=== PATIENT | female | born 1995 | race Caucasian/White ===

== ENCOUNTER 2017-05-17 06:25 | Day surgery (SDC) | payer MEDICAID, OTHER ==
[2017-05-17] MEDS ORDERED: Bupivacaine 0.5% 30 ML SDV ONE (06:38)
[2017-05-17] MEDS ORDERED: Sodium Chloride 0.9% 50 ML SDV ONE (06:38)
--- NOTE | 2017-05-17 07:10 | PCM.PREANE ---
Preanesthetic Assessment - Anesthesia/Transfusion/Family Hx Anesthesia History: Prior Anesthesia Without Reaction Family History of Anesthesia Reaction: No Transfusion History: No Prior Transfusion(s) - Review of Systems General: No Symptoms Pulmonary: No Symptoms Cardiovascular: No Symptoms Gastrointestinal: No symptoms Neurological: No Symptoms Other: Reports: Easy Bruising - Physical Assessment NPO Status Date: 05/16/17 NPO Status Time: 00:00 Pulse: 69 O2 Sat by Pulse Oximetry: 100 Respiratory Rate: 20 Blood Pressure: 126/85 Temperature: 36.8 C Height: 1.6 m Weight: 43 kg ASA Class: 1 Mental Status: Alert & Oriented x3 Airway Class: Mallampati = 2 Dentition: Reports: Normal Dentition Thyro-Mental Finger Breadths: 3 Mouth Opening Finger Breadths: 2 ROM/Head Extension: Full Lungs: Clear to auscultation, Normal respiratory effort Cardiovascular: Regular Rate, Regular Rhythm, No Murmurs - Lab Values: Laboratory Last Values WBC 5.68 K/mm3 (3.98-10.04) 05/16/17 14:41 RBC 5.78 M/mm3 (3.98-5.22) H 05/16/17 14:41 Hgb 15.2 gm/L (11.2-15.7) 05/16/17 14:41 Hct 47.3 % (34.1-44.9) H 05/16/17 14:41 MCV 81.8 fl (79.4-94.8) 05/16/17 14:41 MCH 26.3 pg (25.6-32.2) 05/16/17 14:41 MCHC 32.1 g/dl (32.2-35.5) L 05/16/17 14:41 RDW Std Deviation 43.3 fL (36.4-46.3) 05/16/17 14:41 Plt Count 255 K/mm3 (182-369) 05/16/17 14:41 MPV 12.1 fl (9.4-12.3) 05/16/17 14:41 Neut % (Auto) 55.2 % (34.0-71.1) 05/16/17 14:41 Lymph % (Auto) 35.9 % (19.3-51.7) 05/16/17 14:41 [place] % (Auto) 8.1 % (4.7-12.5) 05/16/17 14:41 Eos % (Auto) 0.4 (0.7-5.8) L 05/16/17 14:41 Baso % (Auto) 0.2 % (0.1-1.2) 05/16/17 14:41 Neut # (Auto) 3.14 K/mm3 (1.56-6.13) 05/16/17 14:41 Lymph # (Auto) 2.04 K/mm3 (1.18-3.74) 05/16/17 14:41 [place] # (Auto) 0.46 K/mm3 (0.24-0.36) H 05/16/17 14:41 Eos # (Auto) 0.02 K/mm3 (0.04-0.36) L 05/16/17 14:41 Baso # (Auto) 0.01 K/mm3 (0.01-0.08) 05/16/17 14:41 Sodium 138 mEq/L (136-145) 05/16/17 14:41 Potassium 4.5 mEq/L (3.5-5.1) 05/16/17 14:41 Chloride 104 mEq/L (98-107) 05/16/17 14:41 Carbon Dioxide 25 mEq/L (21-32) 05/16/17 14:41 Anion Gap 13.5 (5-15) 05/16/17 14:41 BUN 13 mg/dL (7-18) 05/16/17 14:41 Creatinine 0.8 mg/dL (0.55-1.02) 05/16/17 14:41 Est Cr Clr Drug Dosing TNP 05/16/17 14:41 Estimated GFR (MDRD) > 60 mL/min (>60) 05/16/17 14:41 BUN/Creatinine Ratio 16.3 (14-18) 05/16/17 14:41 Glucose 94 mg/dL (74-106) 05/16/17 14:41 Calcium 9.3 mg/dL (8.5-10.1) 05/16/17 14:41 Total Bilirubin 0.3 mg/dL (0.2-1.0) 05/16/17 14:41 AST 23 U/L (15-37) 05/16/17 14:41 ALT 25 U/L (14-59) 05/16/17 14:41 Alkaline Phosphatase 66 U/L (46-116) 05/16/17 14:41 Total Protein 8.2 g/dl (6.4-8.2) 05/16/17 14:41 Albumin 4.1 g/dl (3.4-5.0) 05/16/17 14:41 Globulin 4.1 gm/dL 05/16/17 14:41 Albumin/Globulin Ratio 1.0 (1-2) 05/16/17 14:41 Urine Color Yellow (Yellow) 05/16/17 14:41 Urine Appearance Clear (Clear) 05/16/17 14:41 Urine pH 7.0 (5.0-8.0) 05/16/17 14:41 Ur Specific [place] 1.015 (1.005-1.030) 05/16/17 14:41 Urine Protein Negative (Negative) 05/16/17 14:41 Urine Glucose (UA) Negative (Negative) 05/16/17 14:41 Urine Ketones Negative (Negative) 05/16/17 14:41 Urine Occult Blood 3+ (Negative) H 05/16/17 14:41 Urine Nitrite Negative (Negative) 05/16/17 14:41 Urine Bilirubin Negative (Negative) 05/16/17 14:41 Urine Urobilinogen 0.2 (0.2-1.0) 05/16/17 14:41 Ur Leukocyte Esterase Negative (Negative) 05/16/17 14:41 Urine HCG, Qual Negative (NEGATIVE) 05/16/17 14:41 Blood Type O POSITIVE 05/16/17 14:41 Gel Antibody Screen Negative 05/16/17 14:41 - Anesthesia Plan Pre-Op Medication Ordered: None - Acknowledgements Anesthesia Type Planned: General Anesthesia Pt an Appropriate Candidate for the Planned Anesthesia: Yes Alternatives and Risks of Anesthesia Discussed w Pt/Guardian: Yes Pt/Guardian Understands and Agrees with Anesthesia Plan: Yes PreAnesthesia Questionnaire Gastrointestinal History: Reports: GERD - SUBSTANCE USE Smoking Status *Q: Never Smoker Tobacco Use Within Last Twelve Months: No Second Hand Smoke Exposure: No Days Per Week of Alcohol Use: 0 Number of Drinks Per Day: 0 Total Drinks Per Week: 0 Recreational Drug Use History: No - CURRENT (IN HOUSE) MEDS Current Meds: Current Medications Discontinued Medications Bupivacaine HCl (Marcaine 0.5%) Confirm Administered Dose 30 ml .ROUTE .STK-MED ONE Stop: 05/17/17 06:39 Sodium Chloride (Normal Saline) Confirm Administered Dose 50 ml .ROUTE .STK-MED ONE Stop: 05/17/17 06:39
[2017-05-17] MEDS ORDERED: Propofol 200 MG/20 ML SDV ONE (07:22)
[2017-05-17] MEDS ORDERED: fentaNYL 250 MCG/5 ML SDV ONE (07:22)
[2017-05-17] MEDS ORDERED: Ondansetron 4 MG/2 ML SDV ONE (07:22)
[2017-05-17] MEDS ORDERED: Rocuronium 50 MG/5 ML Vial ONE (07:22)
[2017-05-17] MEDS ORDERED: Midazolam 1 MG/ML 2 ML SDV ONE (07:22)
[2017-05-17] MEDS ORDERED: Dexamethasone 4 MG/ML SDV ONE (07:23)
[2017-05-17] MEDS ORDERED: diphenhydrAMINE 50 MG/ML SDV ONE (07:23)
[2017-05-17] MEDS ORDERED: Lidocaine 1% 4 ML ONE (07:23)
[2017-05-17] MEDS ORDERED: ceFAZolin 1 GM Vial ONE (07:29)
[2017-05-17] MEDS ORDERED: Lidocaine 1%/Sod Bicarbonate in NS 8.4% 1 ML Syringe IV ONE (07:42)
[2017-05-17] MEDS ORDERED: Sodium Chloride 0.9% 10 ML Syringe FLUSH SCH (07:45)
[2017-05-17] MEDS ORDERED: Lactated Ringers 1,000 ML IV SCH (07:45)
[2017-05-17] MEDS ORDERED: Lactated Ringers 1,000 ML ONE (08:06)
[2017-05-17] MEDS ORDERED: Ketorolac 30 MG/ML SDV ONE (08:32)
[2017-05-17] MEDS ORDERED: Acetaminophen/oxyCODONE 325-5 MG Tab PO PRN (08:44)
[2017-05-17] MEDS ORDERED: Ondansetron 4 MG/2 ML SDV IVPUSH PRN (08:44)
--- NOTE | 2017-05-17 08:54 | PCM.POSTAN ---
POST ANESTHESIA ASSESSMENT - MENTAL STATUS Mental Status: alert, oriented - VITAL SIGNS Pulse Rate: 70 SaO2: 100 Resp Rate: 19 Blood Pressure: 111/64 Temperature: 37.3 C - RESPIRATORY Respiratory Status: respiratory rate WNL, airway patent, O2 saturation stable, supplemental oxygen - CARDIOVASCULAR CV Status: pulse rate WNL, blood pressure stable - GASTROINTESTINAL GI Status: no symptoms - PAIN Pain Score: 0 - POST OP HYDRATION Hydration Status: adequate & stable - OBSERVATIONS Free Text/Narrative:: no anesthesia complications noted
--- NOTE | 2017-05-17 08:55 | PCM.OPNOTE ---
- General Post-Op/Procedure Note Date of Surgery/Procedure: 05/17/17 Operative Procedure(s): Laparoscopy, right ovarian cystectomy Findings: 7 cm right ovarian simple cyst. Uterus fallopian tubes and left ovary along with the cul-de-sacs anteriorly and posteriorly are within normal limits. No evidence of liver abnormality. Pre Op Diagnosis: Right ovarian cyst Post-Op Diagnosis: Same Anesthesia Technique: General ET tube Other Anesthesia Type: Marcaine 0.5% locally Primary Surgeon: Emery Johnson Secondary Surgeon: Sera Nguyen Anesthesia Provider: Raza Metclaf Pathology: Right ovarian cyst wall Fluid Replacement, Intraop: 1,300 Output, Urine Amount: 100 EBL in mLs: 20 Drain/Tube Comments:: Indwelling bladder catheter in place only during the surgeryremoved at the end of the case. Complications: None Condition: Good Free Text/Narrative:: Surgery duration: 42 minutes Complications: None Procedure: The patient is taken to the operating room and placed in a supine position on the operating table. She received 2 g of Ancef preoperatively for infection prophylaxis and had sequential compression stockings in place for DVT prophylaxis. She was administered general endotracheal anesthesia. After adequate anesthesia patient was prepped and draped in usual fashion. Her legs were placed in the dorsal lithotomy position and a Steel catheter was placed in the bladder. Uterine manipulator was also placed without problems. The infraumbilical incision site and suprapubic site, along with eventually a right lateral port site, were then developed using Marcaine locally-3-4 mL. 5 mm port sites were established in the right lateral and infraumbilical sites. The suprapubic site eventually was 10 mm port. Pneumoperitoneum was established and patient was found to have a 7 cm cyst right ovary which appeared simple and benign in nature. It totally occupied the pelvis and obliterated the view of the uterus until moved out of the way. The findings otherwise were normal as described above. Decision was made to proceed with dissection of the cyst out of its shell. An incision was made in the ovarian epithelium in the antimesenteric portion of the cyst. This was extended over the entire cyst. Dissection the cyst from the surrounding shell was then undertaken using blunt dissection. During this process the cyst did rupture resulting in benign serous fluid. The cyst wall was then completely dissected out using blunt dissection. Minimal bleeding was encountered. The base of the cyst bed was found to hemostatically intact. The pelvis was irrigated and blood was removed. Interceed was then placed in the bed of the ovary cyst and it was allowed to collapse upon itself. This an attempt to decrease the likelihood of adhesion formation. At this time hemostasis was confirmed. The lower ports were removed as was the upper sleeve. The suprapubic port site was closed with a single interrupted [id number] suture of 0 Vicryl in the fascial layer and 2 subcuticular skin sutures of 3-0 Monocryl. The right port site and the infraumbilical port site were closed with single interrupted suture of 3-0 Vicryl. All incisions were then further approximated with Dermabond skin glue. Patient was returned to supine position after the Steel catheter and the uterine manipulator were removed. It should be noted patients having her period at the time of operation. He was awakened from general endotracheal anesthesia and was discharged from the operating room in good condition
[2017-05-17] MEDS ORDERED: fentaNYL 100 MCG/2 ML SDV IVPUSH PRN (09:45)
[2017-05-17] MEDS ORDERED: HYDROmorphone 0.5 MG/0.5 ML Syringe IVPUSH PRN (09:45)
[2017-05-17 10:19] VITALS: BP 107/59
== END 2017-05-17 12:10 | disposition home or self-care (01) ==
LOC: JD.SDS 06:25
PROVIDERS: ATTEND Obstetrics & Gynecology
PROC: 0UB04ZZ Excision of Right Ovary, Percutaneous Endoscopic Approach (ICD-10-PCS; principal; 2017-05-17)
DX: N83.201 Unspecified ovarian cyst, right side (principal)
CPT/HCPCS: 36415; 58662; 80053; 81003; 81025; 85025; 86850; 86900; 86901; A9270; C1765; J0690; J1100; J1200; J1885; J2250; J2405; J3010; J7120; 00840; J2704

== ENCOUNTER 2018-04-15 16:21 | Emergency (ER) | payer MEDICAID ==
[2018-04-15] MEDS ORDERED: Ondansetron 4 MG/2 ML SDV IVPUSH PRN (16:37)
[2018-04-15] MEDS ORDERED: Atropine/Diphenoxylate 0.025-2.5 MG Tab PO PRN (16:39)
[2018-04-15] MEDS ORDERED: Dextrose 5%-Lactated Ringers 1,000 ML IV SCH (16:45)
[2018-04-15 18:00] VITALS: BP 133/85
--- NOTE | 2018-04-15 20:17 | PCM.CONS ---
H&P History of Present Illness - General Date of Service: 04/15/18 Admit Problem/Dx: 1. Nausea with emesis 2. Diarrhea 3. Temperature elevation 4. Pelvic pain Source of Information: Patient History Limitations: Reports: No Limitations - History of Present Illness Initial Comments - Free Text/Narative: Ashish is a 22-year-old nulligravida white female who was seen initially today the [facility] in [place] to check to see whether she had a bladder infection. She had some suprapubic discomfort. She does report nausea times last 2 days with onset of diarrhea in the last 24 hours. She's had 2-3 bouts of diarrhea today. She has food aversions and has had a hard time keeping fluids down. She thinks she might be mildly dehydrated. She is sent to our clinic for full evaluation of this. Urinalysis done at [facility] was negative. Gonorrhea and chlamydia assays were done and are pending. On evaluation in clinic the patient was noted to have temperature elevation of 100.2. She appeared at least mildly dehydrated somewhat pasty and oral mucous membranes. She is unable to keep fluids down decision was made with to hydrate her in the emergency room give her nausea medication and antidiarrheal medication if needed. Onset of Symptoms: Reports: Other (2 days ago) Symptom Onset Date: 04/13/18 Duration of Symptoms: Reports: Day(s): Location: Reports: Abdomen, Back, Pelvis Quality: Reports: Ache, Other (Cramping) Improves with: Reports: Rest Worsens with: Reports: Movement Abdomen Pain Score (Numeric/FACES): 5 - Related Data Allergies/Adverse Reactions: Allergies Allergy/AdvReac Type Severity Reaction Status Date / Time No Known Allergies Allergy Verified 04/15/18 18:00 Home Medications: Home Meds Atropine/Diphenoxylate [Diphenoxylate-Atropine] 2 tab PO BID PRN tablet [Rx] Ondansetron [Zofran] 4 mg PO Q4H PRN #4 vial 04/15/18 [Rx] Past Medical History Gastrointestinal History: Reports: GERD Genitourinary History: Reports: Other (See Below) (Patient has an IUD in place) Other OB/BYN History: right ovarian cyst. with rlq pain Psychiatric History: Reports: Anxiety, Depression - Past Surgical History Female Surgical History: Reports: Other (See Below) Other Female Surgeries/Procedures: ovarian cyst Social & Family History - Family History Family Medical History: Noncontributory - Tobacco Use Smoking Status *Q: Never Smoker - Caffeine Use Caffeine Use: Reports: None - Recreational Drug Use Recreational Drug Use: No H&P Review of Systems - Review of Systems: Review Of Systems: See Below General: Reports: Fever HEENT: Reports: No Symptoms Pulmonary: Reports: No Symptoms Cardiovascular: Reports: No Symptoms Gastrointestinal: Reports: Abdominal Pain, Diarrhea, Nausea Genitourinary: Reports: Discharge Musculoskeletal: Reports: No Symptoms Skin: Reports: No Symptoms Psychiatric: Reports: No Symptoms Neurological: Reports: No Symptoms Hematologic/Lymphatic: Reports: No Symptoms Immunologic: Reports: No Symptoms Exam - Exam Exam: See Below - Vital Signs Vital Signs: Last Vital Signs Temp 37.7 C 04/15/18 17:00 Pulse 94 04/15/18 17:00 Resp 16 04/15/18 17:00 BP 133/85 04/15/18 17:00 Pulse Ox 100 04/15/18 17:00 - Exam General: Alert, Oriented HEENT: Other (Mucous membranes are pasty and consistent with mild dehydration) Neck: Supple, Trachea Midline Lungs: Clear to Auscultation, Normal Respiratory Effort Cardiovascular: Regular Rate, Regular Rhythm GI/Abdominal Exam: Soft, No Organomegaly, No Distention, No Mass, Other ( Hyperactive bowel sounds) (Female) Exam: Normal External Exam, Normal Speculum Exam (IUD strings noted at cervical os), Normal Bimanual Exam Back Exam: Normal Inspection, Full Range of Motion Extremities: Normal Inspection Skin: Warm, Dry Neuro Extensive - Mental Status: Alert, Oriented x3 Neuro Extensive - Motor, Sensory, Reflexes: Normal Gait Psychiatric: Alert, Normal Affect - Patient Data Lab Results Last 24 hrs: Laboratory Results - last 24 hr 04/15/18 04/15/18 Range/Units 17:10 17:10 WBC 4.69 (3.98-10.04) K/mm3 RBC 5.67 H (3.98-5.22) M/mm3 Hgb 15.3 (11.2-15.7) gm/L Hct 46.8 H (34.1-44.9) % MCV 82.5 (79.4-94.8) fl MCH 27.0 (25.6-32.2) pg MCHC 32.7 (32.2-35.5) g/dl RDW Std Deviation 42.9 (36.4-46.3) fL Plt Count 204 (182-369) K/mm3 MPV 11.6 (9.4-12.3) fl Neutrophils % (Manual) 78 H (40-60) % Band Neutrophils % 1 (0-10) % Lymphocytes % (Manual) 21 (20-40) % Atypical Lymphs % 0 % Monocytes % (Manual) 0 L (2-10) % Eosinophils % (Manual) 0 L (0.7-5.8) % Basophils % (Manual) 0 L (0.1-1.2) Platelet Estimate Adequate Plt Morphology Comment Normal RBC Morph Comment Normal Sodium 137 (136-145) mEq/L Potassium 3.7 (3.5-5.1) mEq/L Chloride 102 (98-107) mEq/L Carbon Dioxide 25 (21-32) mEq/L Anion Gap 13.7 (5-15) BUN 12 (7-18) mg/dL Creatinine 0.8 (0.55-1.02) mg/dL Est Cr Clr Drug Dosing TNP Estimated GFR (MDRD) > 60 (>60) mL/min BUN/Creatinine Ratio 15.0 (14-18) Glucose 100 (74-106) mg/dL Calcium 9.1 (8.5-10.1) mg/dL Total Bilirubin 0.4 (0.2-1.0) mg/dL AST 27 (15-37) U/L ALT 29 (14-59) U/L Alkaline Phosphatase 81 (46-116) U/L Total Protein 8.0 (6.4-8.2) g/dl Albumin 4.1 (3.4-5.0) g/dl Globulin 3.9 gm/dL Albumin/Globulin Ratio 1.1 (1-2) Result Diagrams: 04/15/18 17:10 04/15/18 17:10 Consult PN Assessment/Plan Procedures: Procedures ASSAY THYROID STIM HORMONE (12/30/17) BLOOD TYPING SEROLOGIC ABO (05/17/17) BLOOD TYPING SEROLOGIC RH(D) (05/17/17) CHORIONIC GONADOTROPIN ASSAY (01/07/18) COMPLETE CBC AUTOMATED (12/30/17) COMPLETE CBC W/AUTO DIFF WBC (05/17/17) COMPREHEN METABOLIC PANEL (12/30/17) LAPAROSCOPY EXCISE LESIONS (05/17/17) RBC ANTIBODY SCREEN (05/17/17) ROUTINE VENIPUNCTURE (01/07/18) SMEAR WET MOUNT SALINE/INK (03/12/18) TRICHOMONAS ASSAY W/OPTIC (03/12/18) URINALYSIS AUTO W/O SCOPE (05/17/17) URINALYSIS AUTO W/SCOPE (12/30/17) URINE TEST (05/17/17) Problem List Initiated/Reviewed/Updated: Yes My Orders Last 24 Hours: My Active Orders 04/15/18 16:35 Transvaginal Non OB [US] Routine 04/15/18 16:37 Ondansetron [Zofran] 4 mg IVPUSH Q4H PRN 04/15/18 16:39 Atropine/Diphenoxylate [Lomotil 0.025-2.5 MG] 2 tab PO BID PRN 04/15/18 16:45 Dextrose 5%-Lactated Ringers 1,000 ml IV ASDIRECTED Plan: Emergency department Hospital course:. Patient was evaluated in the ED and was found to have normal vital signs. Laboratory testing was performed and IV hydration was accomplished. Initially normal saline bolus followed by maintenance dose of D5 LR. She was administered Zofran IV. She did not have any emesis during the course of her ED visit but did report some nausea which improved with Zofran. She did not have any diarrhea during the course of her ED evaluation. Patient is doing much better and felt she could manage adequate oral hydration at home. At this point she was discharged to home. Discharge instructions given and discharge planning was completed. Assessment: 1. Probable viral gastroenteritis with resultant nausea and diarrhea. This is accompanied by mild dehydration and temperature elevation secondary to dehydration. 2. Normal white blood count and no evidence of a bacterial infection. 3. Small amount of free fluid in posterior cul-de-sac questionable inflammatory nature. 4. GC and chlamydia assays are pending. 5. Urinalysis unremarkable at [facility] Plan: 1. Adequate oral hydration. Patient feels she'll be able to do this 2. Zofran 4 mg by mouth every 4 hours when necessary for nausea. Quantity for, refill 2 3. Imodium antidiarrhea medication when necessary for diarrhea 4. Patient call clinic in the a.m. to inform us as to her condition. She will call sooner if problem persists or worsens.
--- NOTE | 2018-04-16 10:05 | US ---
Pelvic ultrasound: Multiple real-time images were obtained transvaginally. Comparison: No prior study. Uterus is anteverted. Echogenic structure seen within the endometrial cavity compatible with IUD. IUD obscures good measurement of the endometrial stripe. No myometrial abnormality is seen. Follicles noted within both ovaries. Slight increased free fluid is seen within the pelvis. Measurements: Uterus: Length 6.0 cm, AP height 3.3 cm, transverse width 4.8 cm Right ovary: 3.8 x 1.5 x 2.2 cm Left ovary: 3.7 x 2.2 x 1.9 cm Impression: 1. Slight increased free fluid within the pelvis. Difficult to exclude nonvisualized cyst or follicle rupture. 2. IUD is present within the endometrial cavity. 3. Pelvic ultrasound is otherwise unremarkable. Diagnostic code #2 I agree with preliminary report from [facility], finalized at 04/15/18, 8:38 PM Central Time
== END 2018-04-15 21:08 | disposition home or self-care (01) ==
LOC: JD.ED 16:21 → JD.IVTHER 16:21 → EDSTATUS 17:22 → JD.ED 21:08
DX: R11.2 Nausea with vomiting, unspecified (principal); R19.7 Diarrhea, unspecified; R10.2 Pelvic and perineal pain; R50.9 Fever, unspecified; K21.9 Gastro-esophageal reflux disease without esophagitis; F41.9 Anxiety disorder, unspecified; F32.9 Major depressive disorder, single episode, unspecified; Z79.899 Other long term (current) drug therapy
CPT/HCPCS: 36415; 76830; 80053; 85007; 85027; 96361; 96374; 99284; J2405; J7040; J7042

== ENCOUNTER 2018-04-17 11:45 | Emergency (ER) | payer MEDICAID ==
[2018-04-17 11:53] VITALS: BP 145/91
[2018-04-17] MEDS ORDERED: Ondansetron 4 MG/2 ML SDV IVPUSH ONE (12:14)
[2018-04-17] MEDS ORDERED: Sodium Chloride 0.9% 1,000 ML IV ONE (12:14)
[2018-04-17] MEDS ORDERED: Sodium Chloride 0.9% 10 ML Syringe FLUSH PRN (12:15)
[2018-04-17] MEDS ORDERED: Dicyclomine 20 MG/2 ML SDV IM ONE (12:15)
--- NOTE | 2018-04-17 12:32 | EDM.PDOC ---
ED HPI GENERAL MEDICAL PROBLEM - General Chief Complaint: Abdominal Pain Stated Complaint: LOW ABD PAIN Time Seen by Provider: 04/17/18 12:02 Source of Information: Reports: Patient, Old Records (recent ER visit, recent clinic records) History Limitations: Reports: No Limitations - History of Present Illness INITIAL COMMENTS - FREE TEXT/NARRATIVE: 22 year old female presents for evaluation and treatment of lower abdomen/ pelvic pain, nausea and diarrhea. Symptoms started last weekend. Symptoms started with lower abdominal pain then nausea and diarrhea. She reports she has and 4 watery, loose stools today. No blood in her stools. Reports she has had fevers, highest 102. Describes the lower abdominal pain and constant, crampy pain. No vomiting or urinary symptoms. Patient denies any recent travel. Patient denies any recent antibiotics. Patient denies any ill contacts. Patient reports one day prior to her symptoms stating she ate raw fish and drank alcohol at a restaurant. Patient was seen by [facility] on 04-15-18. She had a UA and gonorrhea and chlamydia testing done. She does not know these results. Patient was sent to Dr. Johnson's office from [facility] for further evaluation. She was then sent to the ER for IV hydration, labs and a tansvaginal ultrasound. Testing was unremarkable. She was prescribed zofran and sent home. She is not getting any relief with the zofran. 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 RECORDAK OPERATOR: Reports: Other (see below) Other Treatments RECORDAK OPERATOR: iv fluids on Saturday Lower Pelvic Pain Score (Numeric/FACES): 5 - Related Data Allergies Allergy/AdvReac Type Severity Reaction Status Date / Time No Known Allergies Allergy Verified 04/15/18 18:00 Home Meds: Home Meds Ciprofloxacin [Cipro XR] 500 mg PO BID #10 tab.er 04/17/18 [Rx] Dicyclomine [Bentyl] 20 mg PO TID PRN #15 tab 04/17/18 [Rx] Ondansetron [Zofran ODT] 4 mg PO Q6H PRN #20 tab.dis 04/17/18 [Rx] Past Medical History Gastrointestinal History: Reports: GERD Genitourinary History: Reports: Other (See Below) Other OB/BYN History: right ovarian cyst. with rlq pain Psychiatric History: Reports: Anxiety, Depression - Past Surgical History Female Surgical History: Reports: Other (See Below) Other Female Surgeries/Procedures: ovarian cyst Social & Family History - Family History Family Medical History: Noncontributory - Tobacco Use Smoking Status *Q: Never Smoker - Caffeine Use Caffeine Use: Reports: Coffee, Tea - Recreational Drug Use Recreational Drug Use: No ED ROS GENERAL - Review of Systems Review Of Systems: See Below Constitutional: Reports: Fever (highest of 102 at home), Decreased Appetite GI/Abdominal: Reports: Abdominal Pain, Diarrhea, Nausea. Denies: Bloody Stool, Vomiting : Reports: No Symptoms. Denies: Dysuria, Hematuria ED EXAM, GI/ABD - Physical Exam Exam: See Below Exam Limited By: No Limitations General Appearance: Alert, WD/WN, No Apparent Distress, Thin Respiratory/Chest: No Respiratory Distress, Lungs Clear, Normal Breath Sounds Cardiovascular: Normal Peripheral Pulses, Regular Rate, Rhythm, No Murmur GI/Abdominal Exam: Normal Bowel Sounds, Soft, No Distention, Tender (suprapubic) Neurological: Alert, Oriented, Normal Cognition Psychiatric: Normal Affect, Normal Mood Skin Exam: Warm, Dry, Normal Color Course - Vital Signs Last Recorded V/S: Last Vital Signs Temp 37.2 C 04/17/18 11:52 Pulse 80 04/17/18 11:52 Resp 20 04/17/18 11:52 BP 145/91 H 04/17/18 11:52 Pulse Ox 100 04/17/18 11:52 - Orders/Labs/Meds Orders: Active Orders 24 hr Category Date Time Status Peripheral IV Care [RC] . DIRECTED Care 04/17/18 12:15 Active C DIFFICILE BY PCR W/NAP1 [MOLEC] Stat Lab 04/17/18 12:14 Ordered CULTURE STOOL + SHIGATOX [RM] Stat Lab 04/17/18 14:20 Received HCG QUALITATIVE,URINE [URCHEM] Stat Lab 04/17/18 14:20 Ordered UA W/MICROSCOPIC [URIN] Stat Lab 04/17/18 14:20 Ordered WBC, STOOL [OP] Stat Lab 04/17/18 12:14 Ordered Peripheral IV Insertion Adult [OM.PC] Routine Oth 04/17/18 12:15 Ordered Labs: Laboratory Tests 04/17/18 04/17/18 04/17/18 Range/Units 12:05 12:05 12:05 WBC 4.26 (3.98-10.04) K/mm3 RBC 5.45 H (3.98-5.22) M/mm3 Hgb 14.9 (11.2-15.7) gm/L Hct 45.8 H (34.1-44.9) % MCV 84.0 (79.4-94.8) fl MCH 27.3 (25.6-32.2) pg MCHC 32.5 (32.2-35.5) g/dl RDW Std Deviation 43.0 (36.4-46.3) fL Plt Count 184 (182-369) K/mm3 MPV 11.5 (9.4-12.3) fl Neutrophils % (Manual) 57 (40-60) % Band Neutrophils % 1 (0-10) % Lymphocytes % (Manual) 35 (20-40) % Atypical Lymphs % 0 % Monocytes % (Manual) 6 (2-10) % Eosinophils % (Manual) 1 (0.7-5.8) % Basophils % (Manual) 0 L (0.1-1.2) Platelet Estimate Adequate RBC Morph Comment Normal Sodium 139 (136-145) mEq/L Potassium 3.7 (3.5-5.1) mEq/L Chloride 104 (98-107) mEq/L Carbon Dioxide 25 (21-32) mEq/L Anion Gap 13.7 (5-15) BUN 17 (7-18) mg/dL Creatinine 0.8 (0.55-1.02) mg/dL Est Cr Clr Drug Dosing 71.27 mL/min Estimated GFR (MDRD) > 60 (>60) mL/min BUN/Creatinine Ratio 21.3 H (14-18) Glucose 100 (74-106) mg/dL Calcium 9.0 (8.5-10.1) mg/dL Magnesium 1.7 L (1.8-2.4) mg/dl Total Bilirubin 0.2 (0.2-1.0) mg/dL AST 24 (15-37) U/L ALT 26 (14-59) U/L Alkaline Phosphatase 83 (46-116) U/L C-Reactive Protein 1.9 H* (<1.0) mg/dL Total Protein 7.7 (6.4-8.2) g/dl Albumin 3.8 (3.4-5.0) g/dl Globulin 3.9 gm/dL Albumin/Globulin Ratio 1.0 (1-2) Urine Color (Yellow) Urine Appearance (Clear) Urine pH (5.0-8.0) Ur Specific [place] (1.005-1.030) Urine Protein (Negative) Urine Glucose (UA) (Negative) Urine Ketones (Negative) Urine Occult Blood (Negative) Urine Nitrite (Negative) Urine Bilirubin (Negative) Urine Urobilinogen (0.2-1.0) Ur Leukocyte Esterase (Negative) Urine RBC (0-5) /hpf Urine WBC (0-5) /hpf Ur Epithelial Cells (0-5) /hpf Urine Bacteria (FEW) /hpf Urine Mucus (FEW) /hpf Urine HCG, Qual (NEGATIVE) 04/17/18 04/17/18 Range/Units 14:20 14:20 WBC (3.98-10.04) K/mm3 RBC (3.98-5.22) M/mm3 Hgb (11.2-15.7) gm/L Hct (34.1-44.9) % MCV (79.4-94.8) fl MCH (25.6-32.2) pg MCHC (32.2-35.5) g/dl RDW Std Deviation (36.4-46.3) fL Plt Count (182-369) K/mm3 MPV (9.4-12.3) fl Neutrophils % (Manual) (40-60) % Band Neutrophils % (0-10) % Lymphocytes % (Manual) (20-40) % Atypical Lymphs % % Monocytes % (Manual) (2-10) % Eosinophils % (Manual) (0.7-5.8) % Basophils % (Manual) (0.1-1.2) Platelet Estimate RBC Morph Comment Sodium (136-145) mEq/L Potassium (3.5-5.1) mEq/L Chloride (98-107) mEq/L Carbon Dioxide (21-32) mEq/L Anion Gap (5-15) BUN (7-18) mg/dL Creatinine (0.55-1.02) mg/dL Est Cr Clr Drug Dosing mL/min Estimated GFR (MDRD) (>60) mL/min BUN/Creatinine Ratio (14-18) Glucose (74-106) mg/dL Calcium (8.5-10.1) mg/dL Magnesium (1.8-2.4) mg/dl Total Bilirubin (0.2-1.0) mg/dL AST (15-37) U/L ALT (14-59) U/L Alkaline Phosphatase (46-116) U/L C-Reactive Protein (<1.0) mg/dL Total Protein (6.4-8.2) g/dl Albumin (3.4-5.0) g/dl Globulin gm/dL Albumin/Globulin Ratio (1-2) Urine Color Light yellow (Yellow) Urine Appearance Clear (Clear) Urine pH 7.0 (5.0-8.0) Ur Specific [place] 1.015 (1.005-1.030) Urine Protein Negative (Negative) Urine Glucose (UA) Negative (Negative) Urine Ketones Negative (Negative) Urine Occult Blood Negative (Negative) Urine Nitrite Negative (Negative) Urine Bilirubin Negative (Negative) Urine Urobilinogen 0.2 (0.2-1.0) Ur Leukocyte Esterase Negative (Negative) Urine RBC 0-5 (0-5) /hpf Urine WBC 5-10 H (0-5) /hpf Ur Epithelial Cells 5-10 H (0-5) /hpf Urine Bacteria Few (FEW) /hpf Urine Mucus Few (FEW) /hpf Urine HCG, Qual Negative (NEGATIVE) Meds: Medications Discontinued Medications Generic Name Dose Route Start Last Admin Trade Name Freq PRN Reason Stop Dose Admin Dicyclomine HCl 20 mg 04/17/18 12:15 04/17/18 12:39 Bentyl IM 04/17/18 12:16 20 mg ONETIME ONE Administration Sodium Chloride 1,000 mls @ 999 mls/hr 04/17/18 12:14 04/17/18 12:37 Normal Saline IV 04/17/18 13:14 999 mls/hr ONETIME ONE Administration Ondansetron HCl 4 mg 04/17/18 12:14 04/17/18 12:39 Zofran IVPUSH 04/17/18 12:15 4 mg ONETIME ONE Administration Sodium Chloride 10 ml 04/17/18 12:15 04/17/18 12:38 Saline Flush FLUSH 10 ml ASDIRECTED PRN Administration Keep Vein Open - Radiology Interpretation Free Text/Narrative:: Abdomen: Supine view of the abdomen was obtained. Comparison: No prior study. Bowel gas pattern appears within normal limits. IUD is present within the pelvis. Bony structures are unremarkable. No abnormal calcifications or soft tissue abnormality is seen. Impression: 1. Unremarkable supine abdominal x-ray. - Re-Assessments/Exams Free Text/Narrative Re-Assessment/Exam: 04/17/18 14:56 Patient has been here over 3 hours at this time and has not had any diarrhea like stools. No indication for any imaging at this time. CRP is slightly elevated she likely has some infectious process going on. Discussed with Dr. Perez. We will obtain stool studies. Will send home with these. Recommended Cipro twice a day for 5 days. Follow up in the clinic next week. Discharge instructions as documented. Departure - Departure Time of Disposition: 15:00 Disposition: Home, Self-Care 01 Condition: Fair Clinical Impression: Gastroenteritis - Discharge Information Prescriptions: Ciprofloxacin [Cipro XR] 500 mg PO BID #10 tab.er Dicyclomine [Bentyl] 20 mg PO TID PRN #15 tab PRN Reason: Pain Ondansetron [Zofran ODT] 4 mg PO Q6H PRN #20 tab.dis PRN Reason: Nausea Instructions: Viral Gastroenteritis, Adult, [id number] Referrals: Emery Johnson MD [Primary Care Provider] - Sera Gibson PA-C [Physician Sprinkler Tender] - Forms: ED Department Discharge Additional Instructions: Bentyl 1 tab PO tid prn abdominal pain and cramping. Zofran 1 tab sublingual every 6-8 hours prn nausea. Recommend starting a probiotic, these are available OTC. Take the ciprofloxacin bid x 5 days. Take with food. Return the stool studies once they are done. Clear fluids and a bland diet. [place] diet recommendations include bread, rice, applesauce, toast, soup broth, etc. Follow-up in clinic next week for a recheck of your symptoms. Recommend SCOTTIE Conner in your PCPs abscence. Call [phone] to schedule with her. Please return to the ER should your symptoms change or worsen. - My Orders Last 24 Hours: My Active Orders 04/17/18 12:14 C DIFFICILE BY PCR W/NAP1 [MOLEC] Stat WBC, STOOL [OP] Stat 04/17/18 12:15 Peripheral IV Care [RC] . DIRECTED Peripheral IV Insertion Adult [OM.PC] Routine 04/17/18 14:20 CULTURE STOOL + SHIGATOX [RM] Stat HCG QUALITATIVE,URINE [URCHEM] Stat UA W/MICROSCOPIC [URIN] Stat - Assessment/Plan Last 24 Hours: My Active Orders 04/17/18 12:14 C DIFFICILE BY PCR W/NAP1 [MOLEC] Stat WBC, STOOL [OP] Stat 04/17/18 12:15 Peripheral IV Care [RC] . DIRECTED Peripheral IV Insertion Adult [OM.PC] Routine 04/17/18 14:20 CULTURE STOOL + SHIGATOX [RM] Stat HCG QUALITATIVE,URINE [URCHEM] Stat UA W/MICROSCOPIC [URIN] Stat
--- NOTE | 2018-04-17 13:37 | CR ---
Abdomen: Supine view of the abdomen was obtained. Comparison: No prior study. Bowel gas pattern appears within normal limits. IUD is present within the pelvis. Bony structures are unremarkable. No abnormal calcifications or soft tissue abnormality is seen. Impression: 1. Unremarkable supine abdominal x-ray. Diagnostic code #2
== END 2018-04-17 15:14 | disposition home or self-care (01) ==
LOC: JD.ED 11:45
DX: K52.9 Noninfective gastroenteritis and colitis, unspecified (principal)
CPT/HCPCS: 36415; 74018; 80053; 81001; 81025; 83735; 85007; 85027; 86140; 96361; 96372; 96374; 99284; J0500; J2405; J7040; J7050; 87046

== ENCOUNTER → 2018-07-08 | Day surgery (SDC) | payer BC, MEDICAID ==
[~2018-07-08] MED LIST: Acetaminophen/oxyCODONE 325-5 MG Tab PO PRN; Bupivacaine 0.5% 30 ML SDV ONE; Dexamethasone 4 MG/ML SDV ONE; HYDROmorphone 0.5 MG/0.5 ML Syringe IVPUSH PRN; HYDROmorphone 0.5 MG/0.5 ML Syringe ONE; Haloperidol Lactate 5 MG/ML SDV IVPUSH ONE; Ketorolac 30 MG/ML SDV ONE; Lactated Ringers 1,000 ML IV SCH; Lactated Ringers 1,000 ML ONE; Lidocaine 1% 4 ML ONE; Lidocaine 1%/Sod Bicarbonate in NS 8.4% 1 ML Syringe IDERM PRN; Meperidine 50 MG/ML Vial IVPUSH PRN; Midazolam 1 MG/ML 2 ML SDV IVPUSH PRN; Midazolam 1 MG/ML 2 ML SDV ONE; Neostigmine Methylsulfate 1 MG/ML 5 ML Syringe ONE; Ondansetron 4 MG/2 ML SDV IVPUSH PRN; Ondansetron 4 MG/2 ML SDV ONE; Propofol 200 MG/20 ML SDV ONE; Rocuronium 50 MG/5 ML Vial ONE; Sodium Chloride 0.9% 10 ML Syringe FLUSH PRN; diphenhydrAMINE 50 MG/ML SDV ONE; fentaNYL 100 MCG/2 ML SDV IVPUSH PRN; fentaNYL 100 MCG/2 ML SDV ONE
--- NOTE | 2018-07-08 07:10 | PCM.PREANE ---
Preanesthetic Assessment - Anesthesia/Transfusion/Family Hx Anesthesia History: Prior Anesthesia Without Reaction Family History of Anesthesia Reaction: No Transfusion History: No Prior Transfusion(s) Intubation History: Unknown - Review of Systems General: No Symptoms, Fatigue Pulmonary: No Symptoms Cardiovascular: No Symptoms Gastrointestinal: Abdominal Pain (Rated 4/10 currentlly), Nausea Neurological: No Symptoms Other: Reports: None - Physical Assessment NPO Status Date: 07/07/18 NPO Status Time: 20:00 Pulse: 85 O2 Sat by Pulse Oximetry: 100 Respiratory Rate: 16 Blood Pressure: 119/60 Temperature: 37.2 C Height: 1.6 m Weight: 44.906 kg ASA Class: 1 Mental Status: Alert & Oriented x3 Airway Class: Mallampati = 2 Dentition: Reports: Normal Dentition, Caries Thyro-Mental Finger Breadths: 3 Mouth Opening Finger Breadths: 2 ROM/Head Extension: Full Lungs: Clear to Auscultation, Normal Respiratory Effort Cardiovascular: Regular Rate, Regular Rhythm, No Murmurs - Lab Values: Laboratory Last Values WBC 4.58 K/mm3 (3.98-10.04) 07/08/18 06:55 RBC 5.38 M/mm3 (3.98-5.22) H 07/08/18 06:55 Hgb 14.5 gm/L (11.2-15.7) 07/08/18 06:55 Hct 45.5 % (34.1-44.9) H 07/08/18 06:55 MCV 84.6 fl (79.4-94.8) 07/08/18 06:55 MCH 27.0 pg (25.6-32.2) 07/08/18 06:55 MCHC 31.9 g/dl (32.2-35.5) L 07/08/18 06:55 RDW Std Deviation 43.7 fL (36.4-46.3) 07/08/18 06:55 Plt Count 209 K/mm3 (182-369) 07/08/18 06:55 MPV 11.8 fl (9.4-12.3) 07/08/18 06:55 Neut % (Auto) 44.6 % (34.0-71.1) 07/08/18 06:55 Lymph % (Auto) 43.7 % (19.3-51.7) 07/08/18 06:55 [place] % (Auto) 9.8 % (4.7-12.5) 07/08/18 06:55 Eos % (Auto) 1.5 (0.7-5.8) 07/08/18 06:55 Baso % (Auto) 0.4 % (0.1-1.2) 07/08/18 06:55 Neut # (Auto) 2.04 K/mm3 (1.56-6.13) 07/08/18 06:55 Lymph # (Auto) 2.00 K/mm3 (1.18-3.74) 07/08/18 06:55 [place] # (Auto) 0.45 K/mm3 (0.24-0.36) H 07/08/18 06:55 Eos # (Auto) 0.07 K/mm3 (0.04-0.36) 07/08/18 06:55 Baso # (Auto) 0.02 K/mm3 (0.01-0.08) 07/08/18 06:55 Urine Color Yellow (Yellow) 07/08/18 06:35 Urine Appearance Clear (Clear) 07/08/18 06:35 Urine pH 7.0 (5.0-8.0) 07/08/18 06:35 Ur Specific [place] 1.020 (1.005-1.030) 07/08/18 06:35 Urine Protein Negative (Negative) 07/08/18 06:35 Urine Glucose (UA) Negative (Negative) 07/08/18 06:35 Urine Ketones Negative (Negative) 07/08/18 06:35 Urine Occult Blood Negative (Negative) 07/08/18 06:35 Urine Nitrite Negative (Negative) 07/08/18 06:35 Urine Bilirubin Negative (Negative) 07/08/18 06:35 Urine Urobilinogen 0.2 (0.2-1.0) 07/08/18 06:35 Ur Leukocyte Esterase Trace (Negative) H 07/08/18 06:35 Above labs reviewed and noted and within acceptable ranges to proceed with scheduled procedure. - Allergies Allergies/Adverse Reactions: Allergies Allergy/AdvReac Type Severity Reaction Status Date / Time No Known Allergies Allergy Verified 07/07/18 13:17 - Anesthesia Plan Pre-Op Medication Ordered: None - Acknowledgements Anesthesia Type Planned: General Anesthesia Pt an Appropriate Candidate for the Planned Anesthesia: Yes Alternatives and Risks of Anesthesia Discussed w Pt/Guardian: Yes Pt/Guardian Understands and Agrees with Anesthesia Plan: Yes PreAnesthesia Questionnaire Cardiovascular History: Reports: None Respiratory History: Reports: None Gastrointestinal History: Reports: Other (See Below) Other Gastrointestinal History: abdominal pain, nausea Genitourinary History: Reports: None JOIST SETTER 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: 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: Other (See Below) Other OB/BYN History: pelvic pain, amenorrhea, menorrhagia, irregular menses, PMS, Right ovarian cyst with laparoscopic excision Musculoskeletal History: Reports: None Neurological History: Reports: None Psychiatric History: Reports: None Endocrine/Metabolic History: Reports: None Hematologic History: Reports: None Immunologic History: Reports: None Oncologic (Cancer) History: Reports: None Dermatologic History: Reports: None - Past Surgical History Head Surgeries/Procedures: Reports: None HEENT Surgical History: Reports: Oral Surgery Cardiovascular Surgical History: Reports: None Respiratory Surgical History: Reports: None GI Surgical History: Reports: None Female Surgical History: Reports: None Male Surgical History: Reports: None Endocrine Surgical History: Reports: None Neurological Surgical History: Reports: None Musculoskeletal Surgical History: Reports: None Oncologic Surgical History: Reports: None Dermatological Surgical History: Reports: None - SUBSTANCE USE Smoking Status *Q: Never Smoker Recreational Drug Use History: No - HOME MEDS Home Medications: Home Meds Norgestrel-Ethinyl Estradiol [[id number] Tablet] 1 tab PO DAILY 07/07/18 [ History] - CURRENT (IN HOUSE) MEDS Current Meds: Current Medications Lactated Ringer's (Ringers, Lactated) 1,000 mls @ 125 mls/hr IV ASDIRECTED ALYSIA Stop: 07/08/18 23:00 Lidocaine/Sodium Bicarbonate (Buffered Lidocaine 1% In Ns 8.4%) 0.25 ml IDERM ONETIME PRN PRN Reason: Prior to IV Start Stop: 07/08/18 18:00 Sodium Chloride (Saline Flush) 10 ml FLUSH ASDIRECTED PRN PRN Reason: Keep Vein Open Stop: 07/08/18 18:00
--- NOTE | 2018-07-08 08:49 | PCM.OPNOTE ---
- General Post-Op/Procedure Note Date of Surgery/Procedure: 07/08/18 Operative Procedure(s): Laparoscopy with lysis of pelvic adhesions Findings: Uterus tubes ovaries were within normal limits. Anterior and posterior cul-de- sac without concerns. Pelvic adhesions that her right lower quadrant-reasonably light and wispy. No evidence of appendiceal inflammation. Liver edge and gallbladder without abnormalities. Pre Op Diagnosis: Abdominal pain, pelvic pain Post-Op Diagnosis: Same Primary Surgeon: Emery Johnson Anesthesia Provider: Mckenzie Taveras Fluid Replacement, Intraop: 500 Output, Urine Amount: 250 EBL in mLs: 5 Drain/Tube Comments:: Indwelling bladder catheter during surgery only. Removed at the end of the case. Complications: None Condition: Good Free Text/Narrative:: Surgery duration: 18 minutes Procedure: The patient was taken to the operating room and placed in supine position on the operative table. She had sequential compression stockings in place for DVT prophylaxis. She was administered general endotracheal anesthesia. After administration of anesthesia the patient was placed in dorsal lithotomy position and prepped and draped in usual fashion. An indwelling bladder catheter was placed as was a uterine manipulator. It should be noted the uterus sounded to 6 cm and was noted to be anterior and mid position. Infraumbilical incision site and suprapubic site were then infiltrated with approximately 3-4 mL of Marcaine 0.5%. 5 mm incisions were made in these areas. Varies needle was placed in the infraumbilical incision site and pneumoperitoneum was established was in 2 L of CO2. The laparoscopic sleeve was then placed as was the scope. Under direct visualization the suprapubic site was developed with a 5 mm port. Pelvis was evaluated findings as above. Findings were as described above. Anatomy otherwise was unremarkable. Adhesions right lower quadrant were taken down in a blunt fashion. No significant bleeding was noted. After lysis of adhesions of the pneumoperitoneum was reversed. The lower sleeve having been removed under direct visualization. The upper port was removed and the incisions were closed with single subcuticular interrupted suture of 3-0 Monocryl. The incisions were further approximated with Dermabond skin glue. The uterine manipulator and Steel catheter removed. Patient was returned to the supine position and awakened from general endotracheal anesthesia. She left the operating room in good condition.
--- NOTE | 2018-07-08 08:56 | PCM.POSTAN ---
POST ANESTHESIA ASSESSMENT - MENTAL STATUS Mental Status: Alert - VITAL SIGNS Pulse Rate: 77 SaO2: 100 Resp Rate: 14 Blood Pressure: 121/71 Temperature: 36.8 C - RESPIRATORY Respiratory Status: Respiratory Rate WNL, Airway Patent, O2 Saturation Stable, Supplemental Oxygen - CARDIOVASCULAR CV Status: Pulse Rate WNL, Blood Pressure Stable - GASTROINTESTINAL GI Status: No Symptoms - POST OP HYDRATION Hydration Status: Adequate & Stable
[2018-07-08 10:43] VITALS: BP 114/60
--- NOTE | 2018-07-08 11:15 | PCM48HPAN ---
Post Anesthesia Note - EVALUATION WITHIN 48HRS OF ANESTHETIC Vital Signs in Normal Range: Yes Patient Participated in Evaluation: Yes Respiratory Function Stable: Yes Airway Patent: Yes Cardiovascular Function Stable: Yes Hydration Status Stable: Yes Pain Control Satisfactory: Yes Nausea and Vomiting Control Satisfactory: Yes Mental Status Recovered: Yes
== END | disposition home or self-care (01) ==
LOC: JD.SDS 06:25
PROVIDERS: ATTEND Obstetrics & Gynecology
DX: N73.6 Female pelvic peritoneal adhesions (postinfective) (principal)
CPT/HCPCS: 36415; 58662; 81003; 81025; 85025; J1100; J1170; J1200; J1885; J2250; J2405; J2704; J2710; J3010; J3490; J7120; 00840; J2001

== ENCOUNTER 2019-12-17 18:27 | Emergency (ER) | payer BC, OTHER, SELFPAY ==
[2019-12-17 18:45] VITALS: BP 143/84; PULSE 76
--- NOTE | 2019-12-17 19:04 | EDM.PDOC ---
ED HPI GENERAL MEDICAL PROBLEM - General Chief Complaint: Abdominal Pain Stated Complaint: ABDOMINAL PAIN Time Seen by Provider: 12/17/19 18:56 Source of Information: Reports: Patient History Limitations: Reports: No Limitations - History of Present Illness INITIAL COMMENTS - FREE TEXT/NARRATIVE: Patient's unfortunate 24-year-old female who presents emergency Department today with complaint of lower abdominal pain and vaginal discharge. Patient reports that symptoms started after lunch today and progressively worsened since. Patient reports she has no dysuria and no urinary urinary frequency no nausea no vomiting no fever no chills does have yellow vaginal discharge is sexually monogamous Abdomen Pain Score (Numeric/FACES): 10 - Related Data Allergies Allergy/AdvReac Type Severity Reaction Status Date / Time No Known Allergies Allergy Verified 07/07/18 13:17 Home Meds: Home Meds Norgestrel-Ethinyl Estradiol [Lxt-Djithdby-10 Tablet] 1 tab PO DAILY 07/07/18 [ History] Ibuprofen 600 mg PO QID PRN #20 tablet 07/08/18 [Rx] Doxycycline [Vibramycin] 100 mg PO BID #14 cap 12/17/19 [Rx] metroNIDAZOLE [Flagyl] 500 mg PO Q8H #21 tab 12/17/19 [Rx] Past Medical History Cardiovascular History: Reports: None Respiratory History: Reports: None Gastrointestinal History: Reports: Other (See Below) Other Gastrointestinal History: abdominal pain, nausea Genitourinary History: Reports: None 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 (See Below) Other MARINE UNDERWRITER History: pelvic pain, amenorrhea, menorrhagia, irregular menses, PMS, Right ovarian cyst with laparoscopic excision Musculoskeletal History: Reports: None Neurological History: Reports: None Psychiatric History: Reports: None Endocrine/Metabolic History: Reports: None Hematologic History: Reports: None Immunologic History: Reports: None Oncologic (Cancer) History: Reports: None Dermatologic History: Reports: None - Past Surgical History Head Surgeries/Procedures: Reports: None HEENT Surgical History: Reports: Oral Surgery Cardiovascular Surgical History: Reports: None Respiratory Surgical History: Reports: None GI Surgical History: Reports: None Female Surgical History: Reports: None Endocrine Surgical History: Reports: None Neurological Surgical History: Reports: None Musculoskeletal Surgical History: Reports: None Oncologic Surgical History: Reports: None Dermatological Surgical History: Reports: None Social & Family History - Family History Family Medical History: Noncontributory - Caffeine Use Caffeine Use: Reports: Coffee, Tea ED ROS GENERAL - Review of Systems Review Of Systems: See Below Constitutional: Denies: Fever, Chills GI/Abdominal: Reports: Abdominal Pain. 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, tenderness, positive chandelier sign, yellow vaginal discharge with foul odor) Back Exam: Normal Inspection, Full Range of Motion, NT Extremities: Normal Inspection, Normal Range of Motion, Non-Tender, Normal Capillary Refill, No Pedal Edema Neurological: Alert Skin Exam: Warm, Dry Course - Vital Signs Last Recorded V/S: Last Vital Signs Temp 98.9 F 12/17/19 18:44 Pulse 76 12/17/19 18:44 Resp 20 12/17/19 18:44 BP 143/84 H 12/17/19 18:44 Pulse Ox 100 12/17/19 18:44 - Orders/Labs/Meds Orders: Active Orders 24 hr Category Date Time Status GC/CHLAMYDIA BY PCR [MOLEC] Stat Lab 12/17/19 19:34 Received Labs: Laboratory Tests 12/17/19 12/17/19 Range/Units 19:34 19:34 Urine Color Yellow (Yellow) Urine Appearance Clear (Clear) Urine pH 7.0 (5.0-8.0) Ur Specific [place] 1.020 (1.005-1.030) Urine Protein Negative (Negative) Urine Glucose (UA) Negative (Negative) Urine Ketones Negative (Negative) Urine Occult Blood Negative (Negative) Urine Nitrite Negative (Negative) Urine Bilirubin Negative (Negative) Urine Urobilinogen 0.2 (0.2-1.0) Ur Leukocyte Esterase Negative (Negative) Urine HCG, Qual Negative (NEGATIVE) - Re-Assessments/Exams Free Text/Narrative Re-Assessment/Exam: 12/17/19 21:12 Patient has pelvic complaint or disease and bacterial vaginosis we'll discharge to home and have patient follow up outpatient with OB Departure - Departure Time of Disposition: 21:12 Disposition: Home, Self-Care 01 Clinical Impression: Pelvic inflammatory disease, Bacterial vaginosis - Discharge Information Prescriptions: Doxycycline [Vibramycin] 100 mg PO BID #14 cap metroNIDAZOLE [Flagyl] 500 mg PO Q8H #21 tab Instructions: Vaginitis, [id number], Pelvic Inflammatory Disease Referrals: Ravin Abebe PA-C [Primary Care Provider] - Forms: ED Department Discharge Additional Instructions: Home, Rest, no sex for 10 days, return in 2 days for culture results, return as needed for worsening condition Sepsis Event Note - Evaluation Sepsis Screening Result: No Definite Risk - Focused Exam Vital Signs: Vital Signs Temp Pulse Resp BP Pulse Ox 12/17/19 18:44 98.9 F 76 20 143/84 H 100 Date Exam was Performed: 12/17/19 Time Exam was Performed: 21:12 - My Orders Last 24 Hours: My Active Orders 12/17/19 19:34 GC/CHLAMYDIA BY PCR [MOLEC] Stat - Assessment/Plan Last 24 Hours: My Active Orders 12/17/19 19:34 GC/CHLAMYDIA BY PCR [MOLEC] Stat
[2019-12-17 21:09] LABS: C. TRACHOMATIS BY PCR NOT DETECTED; N. GONORRHOEAE BY PCR NOT DETECTED
[2019-12-17] MEDS ORDERED: Azithromycin 250 MG Tab PO ONE (21:14)
[2019-12-17] MEDS ORDERED: cefTRIAXone 1 GM Vial IM ONE (21:15)
== END 2019-12-17 21:47 | disposition home or self-care (01) ==
LOC: JD.ED 18:27
DX: N76.0 Acute vaginitis (principal); B96.89 Other specified bacterial agents as the cause of diseases classified elsewhere; N73.9 Female pelvic inflammatory disease, unspecified
CPT/HCPCS: 81003; 81025; 87210; 87491; 87591; 87808; 96372; 99284; A9270; J0696; 99282

== ENCOUNTER 2020-06-05 14:51 | Emergency (ER) | payer BC, OTHER, SELFPAY | END 2020-06-05 18:06 | LOC: JD.ED 14:51 | DX: Z53.21 Procedure and treatment not carried out due to patient leaving prior to being seen by health care provider (principal) ==

== ENCOUNTER 2020-06-06 18:27 | Emergency (ER) | payer BC, OTHER, SELFPAY ==
[2020-06-06 18:42] VITALS: BP 137/84; PULSE 84
[2020-06-06] MEDS ORDERED: Ondansetron 4 MG/2 ML SDV IVPUSH ONE (19:20)
[2020-06-06] MEDS ORDERED: HYDROmorphone 1 MG/ML Syringe IVPUSH STA (19:20)
--- NOTE | 2020-06-06 19:24 | EDM.PDOC ---
ED HPI GENERAL MEDICAL PROBLEM - General Chief Complaint: Abdominal Pain Stated Complaint: ABD PAIN Time Seen by Provider: 06/06/20 19:02 Source of Information: Reports: Patient History Limitations: Reports: No Limitations - History of Present Illness INITIAL COMMENTS - FREE TEXT/NARRATIVE: Ms. Chauhan is a very pleasant 24-year-old woman with a past medical history significant for ovarian cyst, status post a single laparoscopic cystectomy, who now presents to the ED stating that she developed suprapubic and right lower quadrant pain that occasionally radiates to her upper midline abdomen on 06/03/2020. She describes the pain is achy in character. It comes and goes, typically lasting 1 to 2 minutes, then recurring about every hour. Eating, drinking, walking, and moving, such as rolling over in bed, makes the pain worse. She has had nausea and poor appetite, but no vomiting, constipation, diarrhea, urinary symptoms, or fever. She states that her current symptoms are similar to when she had pelvic inflammatory disease in November, however, she has not had a vaginal discharge. She states that her LMP is now, that she is on control pills, which ord inarily suppress her menstrual period, however, she skipped a pill, and is therefore having spotting. She is in a sexually monogamous relationship. The patient states that she has taken ibuprofen and aspirin, which have not helped. Here in the ED, the patient is found to be hemodynamically stable, afebrile, saturating 99% on room air. Other than her current symptoms, the patient denies recent fever, chills, sore throat, ear pain, nasal or sinus congestion, cough, dyspnea, chest pain, palpitations, nausea, vomiting, constipation, diarrhea, urinary symptoms, recent weight gain or weight loss, recent bloody bowel movements or black bowel movements, recent joint aches, headaches, or rashes. The patient states that she last ate around 15:00 this afternoon. The patient does not have a PCP. Her woman's health provider is Alecia Maddox NP. 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) (Ovarian cysts) - Past Surgical History HEENT Surgical History: Reports: Oral Surgery (wisdom teeth extraction) Female Surgical History: Reports: Other (See Below) (Laparoscopic cystectomy) Social & Family History - Family History Family Medical History: Noncontributory - Tobacco Use Smoking Status *Q: Never Smoker - Caffeine Use Caffeine Use: Reports: Coffee, Tea - Alcohol Use Alcohol Use History: Yes Alcohol Use Frequency: Socially - Recreational Drug Use Recreational Drug Use: No - Living Situation & Occupation Living situation: Reports: Single, with Family 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 ED EXAM, GI/ABD - Physical Exam Exam: See Below Exam Limited By: No Limitations General Appearance: Alert, Anxious, Thin Eyes: Bilateral: Normal Appearance, EOMI Ears: Normal External Exam, Hearing Grossly Normal Nose: Normal Inspection Throat/Mouth: Normal Inspection, Normal Lips, Normal Voice, No Airway Compromise Head: Atraumatic, Normocephalic Neck: Normal Inspection, Full Range of Motion Respiratory/Chest: No Respiratory Distress, Lungs Clear, Normal Breath Sounds, No Accessory Muscle Use Cardiovascular: Normal Peripheral Pulses, Regular Rate, Rhythm, No Edema, No Gallop, No JVD, No Murmur, No Rub GI/Abdominal Exam: Normal Bowel Sounds, Soft, No Organomegaly, No Distention, No Abnormal Bruit, No Mass, Tender (Primarily in the right lower quadrant, with mild tenderness in the suprapubic region. Completely nontender elsewhere. Obturator sign absent. Psoas sign absent. Heel drop sign present.) (Female) Exam: Deferred Rectal (Female) Exam: Deferred Back Exam: Normal Inspection, Full Range of Motion. No: CVA Tenderness (L), CVA Tenderness (R) Extremities: Normal Inspection, Normal Range of Motion, No Pedal Edema, Normal Capillary Refill Neurological: Alert, Oriented, Normal Cognition, No Motor/Sensory Deficits Psychiatric: Anxious Skin Exam: Warm, Dry, Intact, Normal Color, No Rash Course - Vital Signs Last Recorded V/S: Last Vital Signs Temp 37.1 C 06/06/20 18:40 Pulse 84 06/06/20 18:40 Resp 16 06/06/20 18:40 BP 137/84 06/06/20 18:40 Pulse Ox 99 06/06/20 18:40 - Orders/Labs/Meds Labs: Laboratory Tests 06/06/20 06/06/20 06/06/20 Range/Units 18:50 18:50 19:21 WBC 8.89 (3.98-10.04) K/mm3 RBC 4.98 (3.98-5.22) M/mm3 Hgb 13.7 (11.2-15.7) gm/dl Hct 43.1 (34.1-44.9) % MCV 86.5 D (79.4-94.8) fl MCH 27.5 (25.6-32.2) pg MCHC 31.8 L (32.2-35.5) g/dl RDW Std Deviation 41.6 (36.4-46.3) fL Plt Count 273 (182-369) K/mm3 MPV 11.0 (9.4-12.3) fl Neutrophils % (Manual) 68 H (40-60) % Band Neutrophils % 2 (0-10) % Lymphocytes % (Manual) 23 (20-40) % Atypical Lymphs % 0 % Monocytes % (Manual) 7 (2-10) % Eosinophils % (Manual) 0 L (0.7-5.8) % Basophils % (Manual) 0 L (0.1-1.2) Platelet Estimate Adequate RBC Morph Comment Normal Sodium (136-145) mEq/L Potassium (3.5-5.1) mEq/L Chloride (98-107) mEq/L Carbon Dioxide (21-32) mEq/L Anion Gap (5-15) BUN (7-18) mg/dL Creatinine (0.55-1.02) mg/dL Est Cr Clr Drug Dosing mL/min Estimated GFR (MDRD) (>60) mL/min BUN/Creatinine Ratio (14-18) Glucose (74-106) mg/dL Calcium (8.5-10.1) mg/dL Total Bilirubin (0.2-1.0) mg/dL AST (15-37) U/L ALT (14-59) U/L Alkaline Phosphatase (46-116) U/L Total Protein (6.4-8.2) g/dl Albumin (3.4-5.0) g/dl Globulin gm/dL Albumin/Globulin Ratio (1-2) Urine Color Yellow (Yellow) Urine Appearance Clear (Clear) Urine pH 7.0 (5.0-8.0) Ur Specific [place] 1.020 (1.005-1.030) Urine Protein 1+ H (Negative) Urine Glucose (UA) Negative (Negative) Urine Ketones Negative (Negative) Urine Occult Blood 3+ H (Negative) Urine Nitrite Negative (Negative) Urine Bilirubin Negative (Negative) Urine Urobilinogen 0.2 (0.2-1.0) Ur Leukocyte Esterase Negative (Negative) Urine RBC 10-20 H (0-5) /hpf Urine WBC 0-5 (0-5) /hpf Ur Squamous Epith Cells 0-5 (0-5) /hpf Urine Bacteria Few (FEW) /hpf Urine Mucus Not seen (FEW) /hpf Urine HCG, Qual Negative (NEGATIVE) 06/06/20 Range/Units 19:21 WBC (3.98-10.04) K/mm3 RBC (3.98-5.22) M/mm3 Hgb (11.2-15.7) gm/dl Hct (34.1-44.9) % MCV (79.4-94.8) fl MCH (25.6-32.2) pg MCHC (32.2-35.5) g/dl RDW Std Deviation (36.4-46.3) fL Plt Count (182-369) K/mm3 MPV (9.4-12.3) fl Neutrophils % (Manual) (40-60) % Band Neutrophils % (0-10) % Lymphocytes % (Manual) (20-40) % Atypical Lymphs % % Monocytes % (Manual) (2-10) % Eosinophils % (Manual) (0.7-5.8) % Basophils % (Manual) (0.1-1.2) Platelet Estimate RBC Morph Comment Sodium 139 (136-145) mEq/L Potassium 4.1 (3.5-5.1) mEq/L Chloride 104 (98-107) mEq/L Carbon Dioxide 25 (21-32) mEq/L Anion Gap 14.1 (5-15) BUN 19 H (7-18) mg/dL Creatinine 1.0 (0.55-1.02) mg/dL Est Cr Clr Drug Dosing 71.14 mL/min Estimated GFR (MDRD) > 60 (>60) mL/min BUN/Creatinine Ratio 19.0 H (14-18) Glucose 109 H (74-106) mg/dL Calcium 8.9 (8.5-10.1) mg/dL Total Bilirubin 0.3 (0.2-1.0) mg/dL AST 17 (15-37) U/L ALT 19 (14-59) U/L Alkaline Phosphatase 70 (46-116) U/L Total Protein 7.4 (6.4-8.2) g/dl Albumin 3.3 L (3.4-5.0) g/dl Globulin 4.1 gm/dL Albumin/Globulin Ratio 0.8 L (1-2) Urine Color (Yellow) Urine Appearance (Clear) Urine pH (5.0-8.0) Ur Specific [place] (1.005-1.030) Urine Protein (Negative) Urine Glucose (UA) (Negative) Urine Ketones (Negative) Urine Occult Blood (Negative) Urine Nitrite (Negative) Urine Bilirubin (Negative) Urine Urobilinogen (0.2-1.0) Ur Leukocyte Esterase (Negative) Urine RBC (0-5) /hpf Urine WBC (0-5) /hpf Ur Squamous Epith Cells (0-5) /hpf Urine Bacteria (FEW) /hpf Urine Mucus (FEW) /hpf Urine HCG, Qual (NEGATIVE) Meds: Medications Discontinued Medications Generic Name Dose Route Start Last Admin Trade Name Freq PRN Reason Stop Dose Admin Diatrizoate Meglum/Diatrizoate Sod 40 ml 06/06/20 19:35 06/06/20 20:27 Gastrografin 37% PO 06/06/20 19:36 40 ml ONETIME ONE Administration Hydromorphone HCl 0.5 mg 06/06/20 19:20 06/06/20 19:28 Dilaudid IVPUSH 06/06/20 19:21 0.5 mg ONETIME STA Administration Sodium Chloride 1,000 mls @ 150 mls/hr 06/06/20 19:30 06/06/20 19:28 Normal Saline IV 150 mls/hr ASDIRECTED ALYSIA Administration Iopamidol 100 ml 06/06/20 19:35 06/06/20 20:27 Isovue-300 (61%) IVPUSH 06/06/20 19:36 100 ml ONETIME ONE Administration Ondansetron HCl 4 mg 06/06/20 19:20 06/06/20 19:28 Zofran IVPUSH 06/06/20 19:21 4 mg ONETIME ONE Administration Sodium Chloride 10 ml 06/06/20 19:35 06/06/20 20:27 Saline Flush FLUSH 10 ml ONETIME PRN Administration Keep Vein Open - Re-Assessments/Exams Free Text/Narrative Re-Assessment/Exam: 06/06/20 19:21 As above, the patient has been experiencing suprapubic and right lower quadrant abdominal pain since 06/03/2020. On examination, she is most tender to palpation in the right lower quadrant, with mild tenderness in the suprapubic region and no tenderness elsewhere. Her obturator and psoas signs are absent, however, heel drop sign is grossly positive. Her presentation is concerning for appendicitis, therefore I have ordered a CT scan of her abdomen and pelvis with oral and IV contrast, along with some blood work. A urinalysis and urine test were obtained at triage. In the meantime, the patient will be given IV Dilaudid, IV Zofran, and IV fluid. 06/06/20 20:21 The patient's CBC is unremarkable. Her CMP is remarkable for a BUN slightly elevated at 19, with a Cr normal at 1.0. Her blood glucose is slightly elevated at 109, with the remainder of her CMP being unremarkable. Her urinalysis is remarkable for 3+ occult blood with 10-20 RBCs, leukocyte esterase negative with 0-5 WBCs, nitrate negative with few bacteria, and 0-5 squamous epithelial cells. Her urine test is negative. 06/06/20 21:15 CT of the abdomen and pelvis with oral and IV contrast as read by Dr. Hernandez as: 1. Appendix not visualized but no evidence of inflammatory change is seen within the right lower abdomen. 2. Other normal findings as noted above. Nothing acute is appreciated. 06/06/20 22:29 Test results discussed with the patient. As above, today's work-up is unremarkable. Based on her work-up, I suspect that she has a ruptured ovarian cyst, although I cannot prove it without an ultrasound, however, I explained that an emergency pelvic ultrasound is not indicated, because the CT scan has already ruled out a hemorrhagic ovarian cyst, and the only treatment for a ruptured ovarian cyst would be ibuprofen. I offered, however, to discuss the case with the Surgeon on-call, to see if they would be willing to keep the patient overnight for observation, due to the very low possibility of appendicitis. The patient asked that I do that. Case then discussed with Dr. Boo at 22:23. Without an elevated white co unt, and with symptoms as they have been since 06/03/2020, and with a negative CT scan of her abdomen and pelvis with oral and IV contrast, he felt that the likelihood of appendicitis was extremely low. He did not feel that it would be cost effective to place the patient into observation so that he could see her in the morning, when he could just as easily see her in his clinic. My conversation with Dr. Boo was discussed with the patient. I explained again that I feel that it is highly likely that she is suffering from a right ovarian cyst, and I explained why an emergency transvaginal ultrasound is not indicated, however, I recommended that instead of following up with the Surgeon, that she follow-up with Alecia Maddox NP, who could probably perform an ultrasound right there in the office. In the meantime, I will have the patient take [id number] ibuprofen. The patient agreed with this plan. Departure - Departure Time of Disposition: 22:33 Disposition: Home, Self-Care 01 Condition: Good Clinical Impression: Right lower quadrant abdominal pain of unknown etiology - Discharge Information *PRESCRIPTION DRUG MONITORING PROGRAM REVIEWED*: Not Applicable *COPY OF PRESCRIPTION DRUG MONITORING REPORT IN PATIENT ANATOLIY: Not Applicable Instructions: Abdominal Pain, Adult, [id number] Referrals: Alecia Maddox NP [Nurse Practitioner] - Forms: ED Department Discharge Additional Instructions: You were seen in the emergency room for lower midline and lower right abdominal pain with occasional radiation up into your upper abdomen, coming and going since 06/03/2020. Work-up in the ER included blood work, a urinalysis, a urine test, and a CT scan of your abdomen and pelvis with oral and IV contrast. Your entire work-up was unremarkable, and does not explain the cause of your symptoms. Your case was discussed with the Surgeon Dr. Boo. Based on your history, physical exam, and ER tests, you are most likely suffering from a ruptured right ovarian cyst. We recommend that you take [id number] ibuprofen, 3 tablets (600 mg) up to every 8 hours, with food, as needed for discomfort. We recommend that you follow-up with your women's health provider, Alecia Maddox NP, at the next available appointment, for further evaluation, that may involve a transvaginal ultrasound. If any other problems, please do not hesitate to return to the ER. Sepsis Event Note (ED) - Evaluation Sepsis Screening Result: No Definite Risk - Focused Exam Vital Signs: Vital Signs Temp Pulse Resp BP Pulse Ox 06/06/20 18:40 37.1 C 84 16 137/84 99
[2020-06-06] MEDS ORDERED: Sodium Chloride 0.9% 1,000 ML IV SCH (19:30)
[2020-06-06] MEDS ORDERED: Diatrizoate Meglumine/Diatrizoate Sodium 37% 120 ML Bottle PO ONE (19:35)
[2020-06-06] MEDS ORDERED: Sodium Chloride 0.9% 10 ML Syringe FLUSH PRN (19:35)
[2020-06-06] MEDS ORDERED: Iopamidol 612 MG/ML 100 ML Bottle IVPUSH ONE (19:35)
--- NOTE | 2020-06-06 20:51 | CT ---
CT abdomen and pelvis Technique: Multiple axial sections were obtained from above the dome of the diaphragm inferiorly through the pubic symphysis. Intravenous and oral contrast was utilized. Delayed images were also obtained. Findings: Visualized lung bases show nothing acute. Appendix not visualized. No inflammatory change is appreciated within the right lower abdomen. Kidneys show symmetric contrast enhancement. Delayed images shows contrast throughout the ureters with contrast noted within the bladder with no evidence of ureteral obstruction. Liver contains no focal parenchymal abnormality. Spleen appears within normal limits. Adrenal glands show no nodule. Pancreas shows no abnormality. Gallbladder contains no calcified gallstones. Aorta shows no aneurysm. No retroperitoneal adenopathy or mesenteric abnormalities are seen. No pelvic mass or adenopathy is appreciated. No free fluid or inflammatory change is appreciated. Bone window settings were reviewed which appear within normal limits for the patient's age. Impression: 1. Appendix not visualized but no evidence of inflammatory change is seen within the right lower abdomen. 2. Other normal findings as noted above. Nothing acute is appreciated. Diagnostic code #1 This report was dictated in MDT
== END 2020-06-06 22:45 | disposition home or self-care (01) ==
LOC: JD.ED 18:27
DX: R10.31 Right lower quadrant pain (principal)
CPT/HCPCS: 36415; 74177; 80053; 81001; 81025; 85007; 85027; 96374; 96375; 99284; J1170; J2405; J7030; Q9963; Q9967